=== PATIENT | female | born 1970 ===

== ENCOUNTER 2019-05-09 02:04 | Emergency (ER) | payer SELFPAY ==
[~2019-05-09] VITALS: Ht 157.5 cm; Wt 45.0 kg
[2019-05-09 02:10] VITALS: BP 0/0
--- NOTE | 2019-05-09 02:23 | NUR ---
CPR CONTINUES, RYTHM IS ASYSTOLE.
--- NOTE | 2019-05-09 02:29 | NUR ---
0219 1MG EPI, 1 AMP BICARB. 0223 1MG EPI, 0227 1MG EPI, 0230 1MG ATROPINE. 0235 RYTHM IS PEA. 0236 1MG EPI. 0239 1MG EPI. 0240 STILL ASYSTOLE- 0240 TIME OF - DR. NAVA
--- NOTE | 2019-05-09 02:53 | NUR ---
Dr. Sanon called Alexandria Forrest, (Michelle) daughter of the patient and there is no answer and he left a message for her to call the hospital urgently. The phone number was obtained by the friend that brought her here.
[2019-05-09] MEDS ORDERED: atropine 0.1mg/ml 10ml syringe ONE (03:00)
[2019-05-09] MEDS ORDERED: sodium bicarbonate (8.4%) inj. 1 MEQ/ML ML ONE (03:00)
[2019-05-09] MEDS ORDERED: epiNEPHrine 0.1mg/ml 10ml syringe ONE (03:00)
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
--- NOTE | 2019-05-09 03:10 | NUR ---
Visualized zan area with SID Ford: no trauma noted, no blood. Did observe clear mucous from vaginal area and the anus is WNLs.
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
--- NOTE | 2019-05-09 03:35 | NUR ---
Daughters phone number [phone].
--- NOTE | 2019-05-09 03:38 | NUR ---
I called the daughter again, no answer and I did leave a message and call back number.
--- NOTE | 2019-05-09 03:42 | NUR ---
The daughter called and the phone call was taken by Dr. Sanon and he informed her about her mothers' , another daughter got on the phone and he told her the same. They were informed to please come to the hospital. They said they would.
--- NOTE | 2019-05-09 04:01 | NUR ---
PER OFFICER Lucio MONTALVO, THEY WILL CALL THE TELEHEALTH CASE MANAGER'S OFFICE.
--- NOTE | 2019-05-09 04:10 | NUR ---
Just got off the phone with "the " and his name is Zeyad Sanchez. He is in [place] currently. His number is [phone]. He states she has PTSD, drinks alcohol, has back problems. She has a med for PTSD but doesn't know what it is. States he doesn't know her doctors' name but doctors at [place], [place]. She has 2 daughters: Michelle and Lucille He states daughters will have to be asked which home.
--- NOTE | 2019-05-09 04:45 | NUR ---
coronor here and he took her
== END 2019-05-09 04:52 | disposition expired ==
LOC: ER 02:05
DX: I46.9 Cardiac arrest, cause unspecified (principal)
CPT/HCPCS: 31500; 36680; 82948; 92950; 99285; J0171; J0461